=== PATIENT | male | born 1965 | race Caucasian/White ===

== ENCOUNTER → 2016-11-27 | Outpatient (CLI) | payer OTHER | LOC: FIMAGING 14:00 | PROVIDERS: ATTEND Orthopaedic Surgery | DX: M17.11 Unilateral primary osteoarthritis, right knee (principal); M22.41 Chondromalacia patellae, right knee; M24.10 Other articular cartilage disorders, unspecified site; M25.461 Effusion, right knee ==

== ENCOUNTER → 2018-02-22 | Outpatient (CLI) | payer OTHER | LOC: BMCIMAGING 07:43 | PROVIDERS: ATTEND Urology | DX: N40.1 Benign prostatic hyperplasia with lower urinary tract symptoms (principal) ==

== ENCOUNTER 2018-05-25 21:22 | Emergency (ER) | payer OTHER ==
--- NOTE | 2018-05-25 21:39 | EDPHY ---
H & P Time Seen by Provider: 05/25/18 21:37 HPI/ROS: CHIEF COMPLAINT: Abdominal pain and vomiting HISTORY OF PRESENT ILLNESS: Patient had some bad heartburn for the past 2 days with says he had a poor diet because of the holidays. He went skiing this morning with his 19-year-old kid and on the way back around 1430 started having epigastric pain with multiple episodes of nausea and vomiting. Symptoms severe associated with feeling very shaky. No diarrhea or minimal diarrhea. No fever or chills. No hematemesis or coffee-ground emesis. REVIEW OF SYSTEMS: Eye: no change in vision ENT: no sore throat Cardiac: no chest pain or syncope Pulmonary: no cough or SOB Abdomen: HPI Musculoskeletal: no back pain Skin: no rash Neuro: no headache Constitutional: no fever : no urinary symptoms A comprehensive 10 point review of systems is otherwise negative aside from elements mentioned in the history of present illness. PAST MEDICAL HISTORY: Negative, no previous abdominal surgeries Social history: No alcohol, no trauma or fall while skiing General Appearance: Alert and conversant, cooperative. Eyes: No scleral icterus. ENT, Mouth: Slightly dry mucous membranes. Respiratory: Normal respiratory effort, breath sounds equal, lungs are clear to auscultation. Cardiovascular: Regular rate and rhythm. Gastrointestinal: Epigastric and right upper quadrant tenderness but negative Baez sign. No McBurney's point tenderness. Neurological: Alert, face symmetric, normal motor and sensory in extremities. Skin: Warm and dry, no rashes. Musculoskeletal: No peripheral edema. Psychiatric: Not agitated. Emergency Department course/MDM: He is exposed to kids of of coworkers recently that had similar symptoms. Patient has benign abdominal exam but has epigastric and right upper quadrant pain. Plan for Zofran 4, normal saline 2 L, labs to include LFT and lipase. Differential considered included but not limited to cholecystitis, biliary colic , pancreatitis, gastroenteritis, staphylococcal food poisoning. I think bowel obstruction or acute surgical abdominal process such as appendicitis is unlikely. 2040: Results discussed including slightly elevated WBC, normal electrolytes except for decreased bicarbonate consistent with dehydration, normal LFTs and lipase. Continue symptomatic treatment, discharge if improvement. Smoking Status: Never smoked Constitutional: Initial Vital Signs Temperature (C) 37.1 C 05/25/18 21:25 Heart Rate 100 05/25/18 21:25 Respiratory Rate 18 05/25/18 21:25 Blood Pressure 143/84 H 05/25/18 21:25 O2 Sat (%) 97 05/25/18 21:25 O2 Delivery Mode Room Air Allergies/Adverse Reactions: No Known Allergies Allergy (Unverified 05/25/18 21:25) Home Medications: Medication Instructions Recorded NK [No Known Home Meds] 05/25/18 Medical Decision Making - Data Points Laboratory Results: Laboratory Results 05/25/18 21:45 05/25/18 21:45 05/25/18 05/25/18 21:45 21:45 WBC 11.16 10^3/uL H 10^3/uL (3.80-9.50) RBC 5.72 10^6/uL 10^6/uL (4.40-6.38) Hgb 17.5 g/dL g/dL (13.7-17.5) Hct 48.9 % % (40.0-51.0) MCV 85.5 fL fL (81.5-99.8) MCH 30.6 pg pg (27.9-34.1) MCHC 35.8 g/dL g/dL (32.4-36.7) RDW 12.0 % % (11.5-15.2) Plt Count 219 10^3/uL 10^3/uL (150-400) MPV 9.4 fL fL (8.7-11.7) Neut % (Auto) 88.8 % H % (39.3-74.2) Lymph % (Auto) 4.7 % L % (15.0-45.0) [place] % (Auto) 5.8 % % (4.5-13.0) Eos % (Auto) 0.1 % L % (0.6-7.6) Baso % (Auto) 0.3 % % (0.3-1.7) Nucleat RBC Rel Count 0.0 % % (0.0-0.2) Absolute Neuts (auto) 9.91 10^3/uL H 10^3/uL (1.70-6.50) Absolute Lymphs (auto) 0.52 10^3/uL L 10^3/uL (1.00-3.00) Absolute Monos (auto) 0.65 10^3/uL 10^3/uL (0.30-0.80) Absolute Eos (auto) 0.01 10^3/uL L 10^3/uL (0.03-0.40) Absolute Basos (auto) 0.03 10^3/uL 10^3/uL (0.02-0.10) Absolute Nucleated RBC 0.00 10^3/uL 10^3/uL (0-0.01) Immature Gran % 0.3 % % (0.0-1.1) Immature Gran # 0.03 10^3/uL 10^3/uL (0.00-0.10) RBC/WBC/PLT Morphology TNP Platelet Estimate TNP Sodium 136 mEq/L mEq/L (135-145) Potassium 4.1 mEq/L mEq/L (3.5-5.2) Chloride 108 mEq/L mEq/L (97-110) Carbon Dioxide 18 mEq/l L mEq/l (22-31) Anion Gap 10 mEq/L mEq/L (6-14) BUN 19 mg/dL mg/dL (7-23) Creatinine 0.9 mg/dL mg/dL (0.7-1.3) Estimated GFR > 60 Glucose 117 mg/dL H mg/dL (70-100) Calcium 9.7 mg/dL mg/dL (8.5-10.4) Total Bilirubin 1.2 mg/dL mg/dL (0.1-1.4) Conjugated Bilirubin 0.2 mg/dL mg/dL (0.0-0.5) Unconjugated Bilirubin 1.0 mg/dL mg/dL (0.0-1.1) AST 26 IU/L IU/L (17-59) ALT 22 IU/L IU/L (21-72) Alkaline Phosphatase 60 IU/L IU/L (38-126) Total Protein 7.5 g/dL g/dL (6.3-8.2) Albumin 4.6 g/dL g/dL (3.5-5.0) Lipase 54 IU/L IU/L (23-300) Medications Given: Discontinued Medications Sodium Chloride (Ns) 1,000 mls @ 0 mls/hr IV EDNOW ONE; Wide Open PRN Reason: Protocol Stop: 05/25/18 21:46 Last Admin: 05/25/18 21:50 Dose: 1,000 mls Sodium Chloride (Ns) 1,000 mls @ 0 mls/hr IV EDNOW ONE; Wide Open PRN Reason: Protocol Stop: 05/25/18 21:46 Last Admin: 05/25/18 21:54 Dose: 1,000 mls Ondansetron HCl (Zofran) 4 mg IVP EDNOW ONE Stop: 05/25/18 21:46 Last Admin: 05/25/18 23:38 Dose: 4 mg Ondansetron HCl (Zofran Odt 4 Mg Prepack#2) 1 btl TAKEHOME EDNOW ONE Stop: 05/25/18 22:16 Last Admin: 05/25/18 23:38 Dose: 1 btl Ondansetron HCl (Zofran) 4 mg IVP EDNOW ONE Stop: 05/25/18 23:37 Last Admin: 05/25/18 23:38 Dose: 4 mg Departure - Departure Disposition: Home, Routine, Self-Care Clinical Impression: Nausea & vomiting, Abdominal pain Condition: Good Instructions: Acute Nausea and Vomiting (ED), Abdominal Pain (ED) Referrals: Kadeem Marie MD [Primary Care Provider] - As per Instructions
[2018-05-25] MEDS ORDERED: NS 1,000 ML IV ONE ×2 (21:45)
[2018-05-25] MEDS: ONDANSETRON 4 MG/2 ML VIAL IVP ONE ×2 (21:50→23:38)
[2018-05-25 22:03] LABS: PLATELET COUNT 219 10^3/uL (150-400)
[2018-05-25] MEDS ORDERED: ONDANSETRON 4MG PREPACK#2 BTL TAKEHOME ONE (22:15)
[2018-05-25 23:32] VITALS: BP 114/64
[2018-05-25] MEDS ORDERED: ONDANSETRON 4 MG/2 ML VIAL IVP ONE (23:36)
== END 2018-05-25 23:49 | disposition home or self-care (01) ==
DX: R11.2 Nausea with vomiting, unspecified (principal); R10.13 Epigastric pain; E86.9 Volume depletion, unspecified
CPT/HCPCS: 96374; J2405

== ENCOUNTER → 2018-07-07 | Outpatient (CLI) | payer OTHER ==
[~2018-07-07] MED LIST: GADOBUTROL 10 ML VIAL IVP ONE
== END ==
LOC: FIMAGING 12:44
PROVIDERS: ATTEND Physician Assistant
DX: M84.88 Other disorders of continuity of bone, other site (principal); M76.899 Other specified enthesopathies of unspecified lower limb, excluding foot
CPT/HCPCS: A9585